=== PATIENT | female | born 1965 | race Caucasian/White ===

== ENCOUNTER 2017-06-12 12:42 | Emergency (ER) | payer OTHER ==
[2017-06-12 13:22] VITALS: BP 136/86
--- NOTE | 2017-06-12 14:15 | UC ---
Throat Pain/Nasal [place] HPI - HPI Summary HPI Summary: SIX DAYS OF HEAD CONGESTION, FACIAL PRESSURE, NONPRODUCTIVE COUGH. 1PPD SMOKER. - History of Current Complaint Chief Complaint: UCRespiratory Stated Complaint: COUGH, AND CHEST CONGESTION Time Seen by Provider: 06/12/17 13:26 Hx Obtained From: Patient Hx Last Menstrual Period: ENDOMETRIAL ABLATION Onset/Duration: Gradual Onset, Lasting Days, Still Present Severity: Moderate Pain Intensity: 0 Pain Scale Used: 0-10 Numeric Cough: Nonproductive Associated Signs & Symptoms: Positive: Hoarseness, Sinus Discomfort, Nasal Discharge - Epiglottits Risk Factors Epiglottis Risk Factors: Negative - Allergies/Home Medications Allergies/Adverse Reactions: Allergies Allergy/AdvReac Type Severity Reaction Status Date / Time Clarithromycin [From Biaxin] Allergy Severe Nausea And Verified 06/12/17 13:16 Vomiting Sulfa Antibiotics Allergy Nausea And Verified 06/12/17 13:16 Vomiting doxycycline Allergy Nausea And Uncoded 06/12/17 13:16 Vomiting PMH/Surg Hx/FS Hx/Imm Hx Previously Healthy: Yes Other History Of: Negative For: HIV, Hepatitis B, Hepatitis C, Anticoagulant Therapy - Surgical History Surgical History: Yes Surgery Procedure, Year, and Place: endometrial ablation - Family History Known Family History: Positive: None Negative: Respiratory Disease - Social History Occupation: Unemployed Lives: With Family Alcohol Use: Rare Substance Use Type: None Smoking Status (MU): Heavy Every Day Tobacco Smoker Type: Cigarettes Amount Used/How Often: 1 ppd When Did the Patient Quit Smoking/Using Tobacco: 30+ YEARS Cessation Counseling: Patient Advised to Stop Review of Systems Constitutional: Negative Skin: Negative Eyes: Negative ENT: Nasal Discharge, Sinus Congestion, Sinus Pain/Tenderness Respiratory: Cough Cardiovascular: Negative Gastrointestinal: Negative Genitourinary: Negative Motor: Negative Neurovascular: Negative Musculoskeletal: Negative Neurological: Negative Psychological: Negative All Other Systems Reviewed And Are Negative: Yes Physical Exam Triage Information Reviewed: Yes Appearance: No Pain Distress, Well-Nourished, Ill-Appearing - MILDLY Vital Signs: Initial Vital Signs Temp 98.1 F 06/12/17 13:18 Pulse 83 06/12/17 13:18 Resp 16 06/12/17 13:18 BP 136/86 06/12/17 13:18 Pulse Ox 97 06/12/17 13:18 Vital Signs Reviewed: Yes Eye Exam: Normal ENT: Positive: Hearing grossly normal, Nasal congestion, TM bulging, TM dull Dental Exam: Normal Neck exam: Normal Neck: Positive: Supple, Nontender, No Lymphadenopathy Respiratory Exam: Other - COUGH Respiratory: Positive: Chest non-tender, Lungs clear, Normal breath sounds, No respiratory distress Cardiovascular Exam: Normal Cardiovascular: Positive: RRR, No Murmur, Pulses Normal, Brisk Capillary Refill Abdominal Exam: Normal Musculoskeletal Exam: Normal Musculoskeletal: Positive: Strength Intact, ROM Intact Neurological Exam: Normal Psychological Exam: Normal Skin Exam: Normal Throat Pain/Nasal Course/Dx - Differential Dx/Diagnosis Differential Diagnosis/HQI/PQRI: Pharyngitis, Sinusitis, Tonsillitis, URI Provider Diagnoses: SINUSITIS; ACUTE COUGH Discharge - Discharge Plan Condition: Stable Disposition: HOME Prescriptions: Benzonatate CAP* [Tessalon 100 MG CAP*] 100 mg PO TID #15 cap Cephalexin CAP* [Keflex CAP*] 500 mg PO TID #30 cap Patient Education Materials: Sinusitis (ED), Acute Cough (ED) Referrals: Yinka MCKINNEY,Saul Rodriguez [Primary Care Provider] -
== END 2017-06-12 14:01 | disposition home or self-care (01) ==
LOC: UCEAST 12:42
DX: J32.9 Chronic sinusitis, unspecified (principal); R05 Cough; Z88.1 Allergy status to other antibiotic agents; Z88.2 Allergy status to sulfonamides; F17.210 Nicotine dependence, cigarettes, uncomplicated
CPT/HCPCS: 99212; G0463